=== PATIENT | male | born 2000 | race African-American/Black ===

== ENCOUNTER 2018-10-01 13:21 | Emergency (ER) | payer MEDICAID ==
[~2018-10-01] VITALS: Ht 190.5 cm; Wt 66.2 kg
[~2018-10-01 13:21] MED LIST: NORPTMEDS CO
[2018-10-01 13:33] VITALS: BP 108/61
[2018-10-01] MEDS ORDERED: LIDOCAINE 1% HCL (LOCAL ANESTH.) INJ 20ML MDV IJ ONE (14:00)
[2018-10-01] MEDS ORDERED: IBUPROFEN 600 MG TAB PO ONE (14:45)
== END 2018-10-01 15:04 | disposition home or self-care (01) ==
LOC: EDBD 13:21 → ER 13:26
DX: S61.412A Laceration without foreign body of left hand, initial encounter (principal); S60.221A Contusion of right hand, initial encounter; J45.909 Unspecified asthma, uncomplicated; V49.59XA Passenger injured in collision with other motor vehicles in traffic accident, initial encounter; Y93.89 Activity, other specified; Y99.8 Other external cause status; Y92.488 Other paved roadways as the place of occurrence of the external cause
CPT/HCPCS: 12004; 73130; 99283; J2001

== ENCOUNTER 2018-10-10 15:22 | Emergency (ER) | payer MEDICAID ==
[~2018-10-10] VITALS: Ht 190.5 cm; Wt 68.0 kg
[2018-10-10 15:36] VITALS: BP 129/64
== END 2018-10-10 18:46 | disposition left against medical advice (07) ==
LOC: ER 15:22
DX: Z48.02 Encounter for removal of sutures (principal); Z53.21 Procedure and treatment not carried out due to patient leaving prior to being seen by health care provider

== ENCOUNTER 2018-10-11 11:50 | Emergency (ER) | payer MEDICAID ==
[~2018-10-11] VITALS: Ht 190.5 cm; Wt 68.0 kg
[2018-10-11 12:40] VITALS: BP 159/75
[2018-10-11] MEDS ORDERED: NEOMYCIN-BACITRACIN-POLYM UNITDOSE PKG TOP OINT TOP ONE (13:30)
== END 2018-10-11 13:38 | disposition home or self-care (01) ==
LOC: ER 11:50
DX: S61.512D Laceration without foreign body of left wrist, subsequent encounter (principal); J45.909 Unspecified asthma, uncomplicated; X58.XXXD Exposure to other specified factors, subsequent encounter

== ENCOUNTER 2020-10-27 15:49 | Emergency (ER) | payer MEDICAID ==
[~2020-10-27] VITALS: Ht 190.5 cm; Wt 68.0 kg
[2020-10-27 15:53] VITALS: BP 121/65
== END 2020-10-27 17:39 | disposition home or self-care (01) ==
LOC: ER 15:50
DX: S63.8X2A Sprain of other part of left wrist and hand, initial encounter (principal); Y04.0XXA Assault by unarmed brawl or fight, initial encounter; Y93.89 Activity, other specified; Y92.89 Other specified places as the place of occurrence of the external cause; Y99.8 Other external cause status
CPT/HCPCS: 29125; 73130